=== PATIENT | male | born 1970 | race Caucasian/White ===

== ENCOUNTER → 2019-08-19 | Outpatient (CLI) | payer OTHER ==
--- NOTE | 2019-08-19 16:08 | XR ---
EXAMINATION TYPE: XR shoulder complete RT DATE OF EXAM: 08/19/2019 COMPARISON: NONE HISTORY: Pain TECHNIQUE: Shoulder examined in 3 projections FINDINGS: The humeral head articulates with the glenoid. The acromio-clavicular junction is normal. No acute fractures or dislocations are evident. A follow up study can be performed 7-10 days from acute trauma for continued pain. IMPRESSION: 1. Normal three-view right Shoulder
--- NOTE | 2019-08-19 16:09 | XR ---
EXAMINATION TYPE: XR thoracic spine complete DATE OF EXAM: 08/19/2019 COMPARISON: None HISTORY: Back pain TECHNIQUE: Two-view thoracic spine FINDINGS: There are 12 thoracic type vertebral bodies. Pedicles are intact. There is slight exaggerat ion of thoracic kyphosis in the lower thoracic spine. Vertebral body heights and disc heights appear preserved. Alignment is otherwise normal. IMPRESSION: 1. Mild increased kyphosis lower thoracic spine. 2. No suspicious acute osseous abnormality.
--- NOTE | 2019-08-19 16:10 | XR ---
EXAMINATION TYPE: XR cervical spine comp DATE OF EXAM: 08/19/2019 COMPARISON: None HISTORY: Pain after neck injury at work TECHNIQUE: Five-view cervical spine FINDINGS: Prevertebral space is normal. Posterior spinal lamellar line is intact. Vertebral body heig hts are preserved. Disc heights are preserved. Alignment is normal. Foramen are patent. Tip of the od ontoid is limited with overlying maxilla and incisors. IMPRESSION: 1. Normal 5 view cervical spine as visualized.
== END | disposition home or self-care (01) ==
LOC: RADXRMAIN 15:33
PROVIDERS: ATTEND Emergency Medicine
DX: M40.294 Other kyphosis, thoracic region (principal); S13.4XXA Sprain of ligaments of cervical spine, initial encounter; S23.3XXA Sprain of ligaments of thoracic spine, initial encounter; S43.401A Unspecified sprain of right shoulder joint, initial encounter
CPT/HCPCS: 72050; 72072